=== PATIENT | male | born 1990 | race Caucasian/White ===

== ENCOUNTER 2021-10-06 23:15 | Inpatient (IN) | payer BC, OTHER ==
[~2021-10-06] VITALS: Ht 188 cm; Wt 86.2 kg
[2021-10-06 23:41] LABS: HEMOGLOBIN 15.5 gm/dl (14.0-17.5); RED BLOOD COUNT 5.32 M/UL (4.20-5.50); WHITE BLOOD COUNT 15.8 K/UL (4.5-11.0)
[2021-10-07 00:31] LABS: BUN/CREATININE RATIO 20 (0-10)
[2021-10-07 04:45] LABS: HEMOGLOBIN 13.7 gm/dl (14.0-17.5)
[2021-10-07 04:53] LABS: RED BLOOD COUNT 4.72 M/UL (4.20-5.50); WHITE BLOOD COUNT 21.3 K/UL (4.5-11.0)
[2021-10-07 04:56] LABS: BUN/CREATININE RATIO 20 (0-10)
[2021-10-08 03:22] LABS: HEMOGLOBIN 13.1 gm/dl (14.0-17.5); RED BLOOD COUNT 4.6 M/UL (4.20-5.50)
[2021-10-08 03:53] LABS: WHITE BLOOD COUNT 9.6 K/UL (4.5-11.0)
[2021-10-08 04:19] LABS: BUN/CREATININE RATIO 12 (0-10)
[2021-10-08 12:08] LABS: BORDETELLA PARAPERTUSSIS Not Detected (Not Detectd); BORDETELLA PERTUSSIS Not Detected (Not Detectd); CHLAMYDIA PNEUMONIAE Not Detected (Not Detectd); CORONAVIRUS HKU1 Not Detected (Not Detectd); CORONAVIRUS NL63 Not Detected (Not Detectd); CORONAVIRUS OC43 Not Detected (Not Detectd); CORONOAVIRUS 229E Not Detected (Not Detectd); HUMAN METAPNEUMOVIRUS Not Detected (Not Detectd); HUMAN RHINOVIRUS/ENTEROVIRUS Not Detected (Not Detectd); INFLUENZA A Not Detected (Not Detectd); INFLUENZA B Not Detected (Not Detectd); MYCOPLASMA PNEUMONIAE Not Detected (Not Detectd); PARAINFLUENZA VIRUS 1 Not Detected (Not Detectd); PARAINFLUENZA VIRUS 2 Not Detected (Not Detectd); PARAINFLUENZA VIRUS 3 Not Detected (Not Detectd); PARAINFLUENZA VIRUS 4 Not Detected (Not Detectd); RESPIRATORY SYNCYTIAL VIRUS Not Detected (Not Detectd)
[2021-10-08] MEDS ORDERED: AMOX TR-K CLV1 EAC4 PO (13:16)
[2021-10-08 15:00] LABS: SARS-CoV-2 NOT DETECTED (Not Detectd)
== END 2021-10-08 14:17 | disposition home or self-care (01) | DRG 871 ==
LOC: ER1 23:15 → CDU 10-07 02:00 → MED SURG 4 10-07 15:25
PROVIDERS: Internal Medicine; Physician Assistant; ADMIT Internal Medicine
PROC: B24BZZZ Ultrasonography of Heart with Aorta (ICD-10-PCS; principal; 2021-10-07)
PROC: 3E03329 Introduction of Other Anti-infective into Peripheral Vein, Percutaneous Approach (ICD-10-PCS; 2021-10-07)
DX: A41.9 Sepsis, unspecified organism (principal); J18.9 Pneumonia, unspecified organism; J96.01 Acute respiratory failure with hypoxia; M62.82 Rhabdomyolysis; E86.0 Dehydration; Z20.822 Contact with and (suspected) exposure to COVID-19; R65.20 Severe sepsis without septic shock; R55 Syncope and collapse; Z88.1 Allergy status to other antibiotic agents
CPT/HCPCS: ECHO; 0240U; 36415; 71045; 80048; 80053; 81001; 82550; 82553; 83605; 83874; 83880; 84484; 85025; 85027; 85379; 85610; 85730; 87040; 87070; 87081; 87205; 87633; 93005; 93306; 94664; 96365; 96366; 96367; 96368; 96375; 99285; J0456; J0696; J3370; J7030; Q9967